=== PATIENT | female | born 1995 | race Caucasian/White ===

== ENCOUNTER → 2017-09-05 08:22 | Day surgery (SDC) | payer BC ==
[~2017-09-05 08:22] MED LIST: Atracurium* 10 MG/ML 10 ML VIAL ONE; Atropine 1MG/ML INJ* 1 ML VIAL ONE; Buffered Lidocaine 0.9% SYRIN* 5 ML/SYR SYRINGE INTRADERM ONE; Buffered Lidocaine 0.9% SYRIN* 5 ML/SYR SYRINGE ONE; Bupivacaine 0.25% SDV* 30 ML ONE; Dexamethasone IV* 4 MG/ML 1 ML (4 MG) ONE; DiMENhydriNATE IV* 50 MG/ML VIAL IV PUSH PRN; Famotidine TAB* 20 MG ONE; Famotidine TAB* 20 MG PO ONE; Ketorolac INJ* 30 MG/ML 1 ML VIAL ONE; Lidocaine 2% PF * 5 ML VIAL ONE; Metoclopramide TAB* 10 MG ONE; Metoclopramide TAB* 10 MG PO ONE; Ondansetron INJ* 2 MG/ML VIAL ONE; Propofol* 10 MG/ML 20 ML BTL IV PUSH ONE; Scopolamine 1.5 mg* PATCH ONE; Scopolamine 1.5 mg* PATCH TRANSDERM ONE; Scopolamine PATCH Remove* 1 NOTE MISC PATCH OFF ONE; Sodium Citrate/Citric Acid* 15 ML UDC ONE; Sodium Citrate/Citric Acid* 15 ML UDC PO ONE; ceFAZolin 2 GM PREMIX (*) 2 GM/50 ML BAG IVPB ONE; fentaNYL* 50 MCG/ML 2 ML VIAL (100 MCG VIAL) ONE; oxyCODONE/Acetamin 5/325 MG* TAB ONE; oxyCODONE/Acetamin 5/325 MG* TAB PO PRN
--- NOTE | 2017-09-05 13:00 | SURGPN ---
Brief Operative Note - Surgery Procedures: Procedures Pre-OP Diagnoses: chronic cholecystitis Post-op Diagnosis: same Procedure: Laparoscopic cholecystectomy Surgeon: Raj Asst: Toby Thurmanthealex: JODY Quinones EBL: minimal IVF: 800ccLR Specimen: gallbladder Drains: none
[2017-09-05] MEDS: fentaNYL* 50 MCG/ML 2 ML VIAL (100 MCG VIAL) IV PRN ×2 (13:21→13:30)
[2017-09-05 15:00] VITALS: BP 110/51
--- NOTE | 2017-09-06 04:52 | OP ---
CC: Dr. Rice * DATE OF SURGERY: 09/05/17 - [facility] DATE OF : 89. SURGEON: Pancho Anthony MD. BUCKET OPERATOR: MEKA Lee. ANESTHESIOLOGIST: Dr. Quinones. ANESTHESIA: General. PRE-OP DIAGNOSIS: Chronic cholecystitis. POST-OP DIAGNOSIS: Chronic cholecystitis. OPERATIVE PROCEDURE: Diagnostic laparoscopy, cholecystectomy. ESTIMATED BLOOD LOSS: Minimal. IV FLUIDS: 800 cc of crystalloid fluid given. SPECIMEN: Gallbladder. COUNT: Lap pad count and instrument count correct at the end of the procedure. DRAINS: None. DESCRIPTION OF PROCEDURE: The patient was identified in the preoperative area. Case was discussed with her and her family again. She signed consent and agreed to proceed with laparoscopic cholecystectomy. She was marked and taken to the operating room and placed on the operating table in supine position. Preoperative antibiotics were given. Sequential devices were placed on bilateral lower extremities. General anesthesia was induced. The patient's abdomen was prepped and draped in a standard surgical fashion. A time-out was performed. Folds of the umbilicus were elevated anteriorly and a Veress needle was inserted into the abdominal cavity. We were unable to gain what appeared to be entry and the Veress needle was removed and a cut-down technique was performed above the umbilicus. This was deepened down to the anterior fascia, which was incised. The posterior structure was cut and we entered into the abdomen. The laparoscope was inserted through this and there was no evidence of injury from the trocar insertion. We reviewed the abdomen and it showed some air under the omentum. It was unclear if this was done with the Veress needle. Additional trocars were placed in the following position: A 5-mm in the subxiphoid area and two 5-mm along the right costal margin. The omentum was lifted off the midline and we looked at the small bowel below, there was no evidence of bleeding or enteric contents. There appeared to be no injury from the Veress needle placement. The abdomen showed scant free fluid in the pelvis and above the liver. There were no adhesions. Liver appeared enlarged, but without lesions. The gallbladder fundus was then grasped and elevated anteriorly. Adhesions to the colon were taken down with sharp dissection and this allowed us to identify the infundibulum, this was grasped and retracted to the right lower quadrant. We exposed Calot's triangle seeing the cystic duct and common bile duct. Dissection was carried out taking the peritoneum off the medial aspect of the gallbladder over the node of Calot, which was reflected posteriorly. Cystic artery was identified. Next, the peritoneum of the lateral portion of the gallbladder was taken and the cystic duct was isolated intact and it was doubly clipped and ligated as was the cystic artery. Gallbladder was then removed from the liver bed, placed in the endoscopic retrieval bag and placed over the liver. Attention was then turned towards the rest of the abdomen. We placed the patient in a Trendelenburg fashion. Camera was used to review the pelvis and this was when we had seen the free fluid in the pelvis, this was nonbloody and serous in quality. Both left and right ovaries were normal. The appendix appeared normal with a normal tip and no injection. Next, the gallbladder was removed from the umbilical port site. We then closed the umbilical port site with a fascial layer with an 0 Vicryl suture using Endo Close device with simple suture. The abdomen was allowed to collapse. Trocar was removed under direct vision. All incisions were reapproximated with 4-0 Monocryl subcuticular sutures followed by sterile dressing. The patient tolerated the procedure well and was woken up in the OR and transferred to PACU in stable condition. [id number]/[facility] #: [id number] MARIE
== END | disposition home or self-care (01) ==
LOC: OR 08:22
PROVIDERS: ATTEND Surgery
DX: K80.10 Calculus of gallbladder with chronic cholecystitis without obstruction (principal); J45.909 Unspecified asthma, uncomplicated; F17.210 Nicotine dependence, cigarettes, uncomplicated
CPT/HCPCS: 81025; 88304; A9270-GY; J0461; J0690; J1100; J1885; J2405; J2704; J3010

== ENCOUNTER 2019-05-08 06:18 | Day surgery (SDC) | payer OTHER ==
[~2019-05-08 06:18] MED LIST changes: -Atracurium* 10 MG/ML 10 ML VIAL ONE; -Atropine 1MG/ML INJ* 1 ML VIAL ONE; -Buffered Lidocaine 0.9% SYRIN* 5 ML/SYR SYRINGE INTRADERM ONE; -Buffered Lidocaine 0.9% SYRIN* 5 ML/SYR SYRINGE ONE; +Buffered Lidocaine 1% SYRIN* 1 ML/SYRINGE INTRADERM ONE; -Bupivacaine 0.25% SDV* 30 ML ONE; -Dexamethasone IV* 4 MG/ML 1 ML (4 MG) ONE; -DiMENhydriNATE IV* 50 MG/ML VIAL IV PUSH PRN; +Famotidine IV* 10 MG/ML 2 ML (20 mg) IV ONE; +Famotidine IV* 10 MG/ML 2 ML (20 mg) ONE; -Famotidine TAB* 20 MG ONE; -Famotidine TAB* 20 MG PO ONE; -Ketorolac INJ* 30 MG/ML 1 ML VIAL ONE; +Lactated Ringers 1000 ML Bag* 1,000 ML IV SCH; -Lidocaine 2% PF * 5 ML VIAL ONE; -Metoclopramide TAB* 10 MG ONE; -Metoclopramide TAB* 10 MG PO ONE; -Ondansetron INJ* 2 MG/ML VIAL ONE; -Propofol* 10 MG/ML 20 ML BTL IV PUSH ONE; -Scopolamine 1.5 mg* PATCH ONE; -Scopolamine 1.5 mg* PATCH TRANSDERM ONE; -Scopolamine PATCH Remove* 1 NOTE MISC PATCH OFF ONE; -Sodium Citrate/Citric Acid* 15 ML UDC ONE; -Sodium Citrate/Citric Acid* 15 ML UDC PO ONE; -ceFAZolin 2 GM PREMIX (*) 2 GM/50 ML BAG IVPB ONE; -fentaNYL* 50 MCG/ML 2 ML VIAL (100 MCG VIAL) ONE; -oxyCODONE/Acetamin 5/325 MG* TAB ONE; -oxyCODONE/Acetamin 5/325 MG* TAB PO PRN
[2019-05-08] MEDS ORDERED: ceFAZolin 2 GM in NS PREMIX(*) 2 GM/100 ML BAG IVPB ONE (06:22)
[2019-05-08] MEDS ORDERED: Bupivacaine 0.25% SDV* 30 ML ONE (07:07)
[2019-05-08] MEDS ORDERED: fentaNYL* 50 MCG/ML 2 ML VIAL (100 MCG VIAL) ONE (07:29)
[2019-05-08] MEDS ORDERED: Midazolam* 1 MG/ML 2 ML VIAL (2 MG) ONE ×2 (07:30→07:38)
[2019-05-08] MEDS ORDERED: Lidocaine 2% PF * 5 ML VIAL ONE (07:36)
[2019-05-08] MEDS ORDERED: Propofol* 10 MG/ML 20 ML BTL ONE (07:36)
[2019-05-08] MEDS ORDERED: Ketorolac INJ* 30 MG/ML 1 ML VIAL ONE (07:36)
[2019-05-08] MEDS ORDERED: Bupivacaine 0.25% SDV PF* 10 ML VIAL INJ ONE (07:53)
[2019-05-08] MEDS ORDERED: Levalbuterol 0.63MG/3ML NEB* UNIT OF USE INH PRN (08:02)
[2019-05-08] MEDS ORDERED: Acetaminophen TAB* 325 MG PO PRN (08:02)
[2019-05-08] MEDS ORDERED: HYDROcodone/ACETAMIN 5-325 MG* 1 TAB PO PRN (08:02)
[2019-05-08] MEDS ORDERED: fentaNYL* 50 MCG/ML 2 ML VIAL (100 MCG VIAL) IV PRN (08:02)
[2019-05-08] MEDS ORDERED: DiMENhydriNATE IV* 50 MG/ML VIAL IV PUSH PRN (08:02)
[2019-05-08] MEDS ORDERED: Ondansetron INJ* 2 MG/ML VIAL IV PRN (08:02)
[2019-05-08] MEDS ORDERED: diPHENhydraMINE IV* 50 MG/ML 1 ml VIAL (BENADRYL) IV PRN (08:02)
[2019-05-08] MEDS ORDERED: Naloxone* 0.4 MG/ML 1 ML VIAL IV PRN (08:02)
--- NOTE | 2019-05-08 09:56 | OP ---
DATE OF OPERATION: 05/08/19 [facility] DATE OF : [birth year] SURGEON: Tej Prery MD. PICKLE WATER PUMP OPERATOR: MEKA Robison. ANESTHESIOLOGIST: Dr. Paredes. ANESTHESIA: Local, MAC. PRE-OP DIAGNOSES: 1. Left carpal tunnel syndrome. 2. Left volar wrist ganglion cyst. POST-OP DIAGNOSES: 1. Left carpal tunnel syndrome. 2. Left volar wrist ganglion cyst. OPERATIVE PROCEDURE: 1. Left open carpal tunnel release. 2. Excision of left volar wrist ganglion cyst. INDICATIONS: Nicole is 24. She has carpal tunnel syndrome. She also has a prominent left volar wrist ganglion cyst. We talked about treatment options. She wanted to have it excised. She understands the risks and benefits associated with this. ESTIMATED BLOOD LOSS: 2 mL. COMPLICATIONS: None. FINDINGS: See above and below. DESCRIPTION OF PROCEDURE: Nicole was seen in the preoperative holding area. The correct site, side, and procedure were identified. We came back to the operating room. The arm was prepped and draped in the usual fashion. A time- out was performed. The arm was exsanguinated with the Esmarch and the tourniquet was inflated to 250 mmHg. I first made a 2- to 3-cm longitudinal incision in the proximal thumb. Dissection was carried down through subcutaneous tissue and palmar fascia. The transverse carpal ligament was exposed and then released just off the radial aspect of the hook of the hamate. The release was completed distally and then proximally. I released the subcutaneous tissue and fascia and then released the remainder of the transverse carpal ligament and distal antebrachial fascia to a level several centimeters proximal to the wrist flexion crease. Once I confirmed the decompression that it was looking very good, we irrigated out the wound and the skin was closed with 4-0 nylon suture. I next made a 2- to 3-cm longitudinal incision over the volar radial distal forearm near the wrist joint over the cyst. Dissection was carried down and I opened the deep fascia. The radial artery was identified together with a carpal branch and these were both mobilized and retracted radially. The cyst was exposed. I took it all the way down to its deep margin. I tracked it down to where it came off the volar aspect of the radiocarpal joint, probably off the volar scapholunate joint. I amputated the cyst there at the joint capsule and then cauterized the opening where the cyst had come off. It was pretty obvious where it had come off. Once I cleaned everything up, everything was looking good and everything was nicely cauterized. We irrigated out the wound. The skin was closed with 4-0 nylon suture. She was placed in a volar cockup wrist splint and tourniquet was deflated, and the hand pinked up immediately. She was taken to the recovery room in stable condition. [id number]/[facility] #: [id number] MTDD
[2019-05-08 10:32] VITALS: BP 103/64
== END 2019-05-08 09:20 | disposition home or self-care (01) ==
LOC: OREAST 06:18
PROVIDERS: ATTEND Orthopaedic Surgery Hand Surgery
DX: G56.02 Carpal tunnel syndrome, left upper limb (principal); M67.432 Ganglion, left wrist; J45.909 Unspecified asthma, uncomplicated; F17.210 Nicotine dependence, cigarettes, uncomplicated
CPT/HCPCS: 81025; 88304; J0690; J1885; J2250; J2704; J3010; J3490